=== PATIENT | male | born 1975 | race American Indian/Alaskan Native ===

== ENCOUNTER 2018-05-28 15:57 | Outpatient (CLI) | payer OTHER ==
[2018-06-02 21:48] LABS: ANA Screen, IFA Negative (Negative)
== END 2018-05-28 15:58 | disposition home or self-care (01) ==
LOC: LAB 15:57
PROVIDERS: ATTEND Specialist
DX: G65.1 Sequelae of other inflammatory polyneuropathy (principal); J45.909 Unspecified asthma, uncomplicated
CPT/HCPCS: 36415; 83036; 83921; 85652; 86038; 86225; 86334; 86592; 86618